=== PATIENT | female | born 1935 | race African-American/Black ===

== ENCOUNTER 2019-07-29 19:39 | Emergency (ER) | payer OTHER ==
[~2019-07-29] VITALS: Ht 170.2 cm; Wt 81.2 kg
[~2019-07-29 19:39] MED LIST: ATIVAN1 MG PO; BAY PO; DILTIAZEM HCL120 M2 PO; FLUTICASON0.05 MG/Ac; FUROSEMIDE20 MG PO; PRI20 PO; TRE400 PO; V12I10 IM; VITAMIN D31000 I2 PO
[2019-07-29 19:52] VITALS: Ht 170.2 cm; Wt 81.2 kg
[2019-07-29 22:28] VITALS: BP 142/72
== END 2019-07-29 22:28 | disposition home or self-care (01) ==
LOC: ED 19:39
DX: S80.01XA Contusion of right knee, initial encounter (principal); S29.9XXA Unspecified injury of thorax, initial encounter; S69.82XA Other specified injuries of left wrist, hand and finger(s), initial encounter; S99.921A Unspecified injury of right foot, initial encounter; Z88.1 Allergy status to other antibiotic agents; Z88.5 Allergy status to narcotic agent; Z88.8 Allergy status to other drugs, medicaments and biological substances; W01.0XXA Fall on same level from slipping, tripping and stumbling without subsequent striking against object, initial encounter; Y93.89 Activity, other specified; Y92.89 Other specified places as the place of occurrence of the external cause; Y99.8 Other external cause status
CPT/HCPCS: J1885; Q0162